=== PATIENT | female | born 1950 | race Caucasian/White ===

== ENCOUNTER 2021-11-25 14:09 | Emergency (ER) | payer OTHER ==
[~2021-11-25] VITALS: Wt 88.5 kg
[2021-11-25] MEDS ORDERED: CYCLOBENZAPRINE10 MG PO (15:05)
== END 2021-11-25 15:13 | disposition home or self-care (01) ==
LOC: ED 14:09
DX: S80.01XA Contusion of right knee, initial encounter (principal); M25.532 Pain in left wrist; Z88.6 Allergy status to analgesic agent; Z90.49 Acquired absence of other specified parts of digestive tract; Z98.51 Tubal ligation status; V89.2XXA Person injured in unspecified motor-vehicle accident, traffic, initial encounter; Y93.I9 Activity, other involving external motion; Y92.488 Other paved roadways as the place of occurrence of the external cause; Y99.8 Other external cause status

== ENCOUNTER 2024-04-08 13:36 | Emergency (ER) | payer MEDICARE ==
[~2024-04-08] VITALS: Ht 165.1 cm; Wt 90.7 kg
[~2024-04-08 13:36] MED LIST: CYCLOBENZAPRINE10 MG PO
[2024-04-08] MEDS ORDERED: OMEPRAZOLE40 MG PO (13:51)
[2024-04-08] MEDS ORDERED: IBU800 M1 PO (13:51)
[2024-04-08] MEDS ORDERED: TRAMADOL HCL50 MG PO (13:52)
[2024-04-08] MEDS ORDERED: PROLIA60 MG/1 ML SQ (13:52)
[2024-04-08] MEDS ORDERED: VALSARTAN-HCTZ1 EAC3 PO (13:53)
[2024-04-08] MEDS ORDERED: ATORVASTATIN CA20 M1 PO (13:53)
[2024-04-08] MEDS ORDERED: ANASTROZOLE1 M1 PO (13:53)
== END 2024-04-08 16:44 | disposition home or self-care (01) ==
LOC: ED 13:36
DX: S52.612A Displaced fracture of left ulna styloid process, initial encounter for closed fracture (principal); S52.122A Displaced fracture of head of left radius, initial encounter for closed fracture; S22.32XA Fracture of one rib, left side, initial encounter for closed fracture; M19.90 Unspecified osteoarthritis, unspecified site; I10 Essential (primary) hypertension; E78.5 Hyperlipidemia, unspecified; K21.9 Gastro-esophageal reflux disease without esophagitis; Z88.6 Allergy status to analgesic agent; Z88.5 Allergy status to narcotic agent; Z90.49 Acquired absence of other specified parts of digestive tract; Z98.890 Other specified postprocedural states; W18.09XA Striking against other object with subsequent fall, initial encounter; Y93.01 Activity, walking, marching and hiking; Y92.239 Unspecified place in hospital as the place of occurrence of the external cause; Y99.8 Other external cause status